=== PATIENT | male | born 1955 | race Caucasian/White ===

== ENCOUNTER → 2018-05-15 | Outpatient (CLI) | payer BC ==
--- NOTE | 2018-05-15 17:56 | PCVCIMAG ---
APPROVED REPORT Study performed: 05/15/2018 15:28:32 Exam: Stress Echocardiogram Indication: CAD,Elevated cor ca+ score Patient Location: Echo lab Stress Nurse: Priscilla Garcia RN Room #: 2 Status: routine Ht: 5 ft 6 in HR: 99 bpm BP: 132/70 mmHg Rhythm: NSR Medical History Medical History: Elevated cor ca+ Cardiac Risk Factors: FHX of CAD Previous Cardiac Procedures: none Pretest Chest Pain Characteristics: No chest pain Exercise History: Physically active Procedure The patient underwent an Exercise Stress Test using the Grover Protocol. Blood pressure, heart rate, and EKG were monitored. An Echocardiogram was performed by layout technician in four stages in quad fashion. At peak stress, four selected images were obtained and placed side by side with resting images for comparison. Stress Test Details Stress Test: Exercise stress testing was performed using a Grover protocol. HR Resting HR: 99 bpmMax Heart Rate (APMHR): 159 bpm Max HR Achieved: 169 bpmTarget HR (85% APMHR): 135 bpm % of APMHR: 106 Recovery HR: 112 bpm HR response to stress: Normal HR response to stress BP Resting BP: 132/70 mmHg Max BP: 180/70 mmHg Recovery BP: 144/70 mmHg ECG Resting ECG: Sinus Rhythm Stress ECG: Sinus Rhythm, NSSTT changes ST Change: Upsloping ST depression Arrhythmia: Rare PVCs Recovery ECG: Sinus Rhythm Recovery ST Change: Non-ischemic Recovery Arrhythmia: None Clinical Reason for Termination: Maximal effort Stress Symptoms: none Exercise duration: 11 min 01 sec Highest Stage Achieved: Stage 4: 4.2 mph at 16% grade. Exercise capacity: 13.4 METs Overall Exercise Capacity for Age: Good Scale: Active Angina Score: None No complications. Stress ECG Conclusion The resting heart rate of 99 bpm pierre to a maximum heart rate of 169 bpm. This value represent 106 % of the maximal, age-predicted heart rate. The resting blood pressure of 132/70 mmHg, pierre to a maximum blood pressure of 180/70 mmHg. The exercise test was stopped due to fatigue. Pre-Stress Echo The resting Echocardiogram showed normal left ventricular contractility with an estimated Ejection Fraction of about 55-60%. Normal wall motion in all segments on baseline images. Post-Stress Echo The stress Echocardiogram showed normal left ventricular contractility with an estimated Ejection Fraction of about 65-70%. Normal augmentation of wall motion in all segments on post stress images. Clinical No clinical or ECG evidence for ischemia. Conclusion Clinical Response: Non-ischemic Exercise Capacity: Superior Stress ECG Response: Non-ischemic Stress Echo Images: Non-ischemic No clinical, EKG or echocardiographic evidence for ischemia. No echocardiographic evidence for exercise induced ischemia. Normal stress echocardiogram with maximal exercise stress. 1.. Low risk study <Conclusion> No clinical, EKG or echocardiographic evidence for ischemia. No echocardiographic evidence for exercise induced ischemia. Normal stress echocardiogram with maximal exercise stress. 1.. Low risk study
== END | disposition home or self-care (01) ==
LOC: PCVCIMAG 14:22
PROVIDERS: ATTEND Internal Medicine
DX: R93.1 Abnormal findings on diagnostic imaging of heart and coronary circulation (principal)
CPT/HCPCS: 93325; 93351